=== PATIENT | female | born 1950 | race Caucasian/White ===

== ENCOUNTER → 2023-10-27 | Emergency (ER) | payer OTHER ==
[~2023-10-27] MED LIST: HYDROCODONE/APAP 10/325 TAB ONE; MORPHINE *EXTENDED RELEASE* 15 MG TAB PO ONE
--- NOTE | 2023-10-27 15:58 | RAD REPORT ---
EXAM DESCRIPTION: Josue Single View10/27/2023 3:37 pm CLINICAL HISTORY: Cough COMPARISON: none FINDINGS: The lungs appear clear of acute infiltrate. The heart is normal size IMPRESSION: No acute abnormalities displayed
[2023-10-27 16:39] LABS: Absolute Lymphocytes (CBC) 1.7 K/uL (0.7-4.9); Hematocrit 43.5 % (36.0-45.0); Lymphocytes % 33.6 % (15.3-44.8); MCV 91.7 fL (80-100); MPV 8.8 fL (7.6-11.3); Platelets 150 thou/uL (152-406); RBC Red Blood Cell Count 4.74 M/uL (3.86-4.86)
[2023-10-27 16:42] LABS: Protime INR 1.07
[2023-10-27 16:59] LABS: Bilirubin Direct 0.2 mg/dL (0-0.2); Bilirubin Indirect, Calculated 0.5 mg/dL (0.2-0.8); Bilirubin Total 0.7 mg/dL (0.2-1.0); Magnesium 2.1 mg/dL (1.6-2.4); Protein, Total 8.2 g/dL (6.4-8.2); Troponin High Sensitivity 7.6 pg/mL (<58.9)
--- NOTE | 2023-10-27 18:13 | ER ---
Nurse's Notes [facility] Name: Dolores Haines Age: 73 yrs Sex: Female : 1950 Arrival Date: 10/27/2023 Time: 13:54 Bed DX3 Private MD: Diagnosis: Chronic pain syndrome Presentation: 10/27 14:30 Chief complaint: Patient states: HERE FOR A PRESCRIPTION OF MORPHINE. FROM [place]. HAS j7 CHRONIC PAIN AND HER PRESCRIPTION WILL RUN OUT BEFORE SHE LEAVES AND NO ONE IN [place] WILL FILL HER OUT OF TOWN PRESCRIPTION SO SHE NEEDS A MORPHINE PRESCRIPTION FROM A [place] DR. Coronavirus screen: At this time, the client does not indicate any symptoms associated with coronavirus-19. Ebola Screen: No symptoms or risks identified at this time. Initial Sepsis Screen: Does the patient meet any 2 criteria? No. Patient's initial sepsis screen is negative. Does the patient have a suspected source of infection? No. Patient's initial sepsis screen is negative. Risk Assessment: Do you want to hurt yourself or someone else? Patient reports no desire to harm self or others. 14:30 Method Of Arrival: Wheelchair [facility] 14:30 Acuity: DIONISIO 5 j7 18:15 Onset of symptoms is unknown. ap3 Triage Assessment: 14:40 General: Appears in no apparent distress. comfortable, obese, Behavior is calm, jj7 cooperative, appropriate for age, anxious. Pain: Complains of pain in CHRONIC ALL OVER. Historical: - Allergies: 14:40 Lisinopril; jj7 14:40 Aspirin; jj7 14:40 NSAIDS; jj7 14:40 Nickel; jj7 - PMHx: 14:40 Arthritis; Diabetes mellitus; Hypertensive disorder; jj7 - PSHx: 14:40 LAMINECTOMY; NECK FUSION; Tonsillectomy; Cholecystectomy; GASTRIC BYPASS; jj7 - Immunization history:: Adult Immunizations up to date. - Social history:: Smoking status: Patient denies any tobacco usage or history of. Patient/guardian denies using alcohol, street drugs. - Family history:: not pertinent. Screenin:15 [facility] ED Fall Risk Assessment (Adult) History of falling in the last 3 months, ap3 including since admission No falls in past 3 months (0 pts). Abuse screen: Denies threats or abuse. Nutritional screening: No deficits noted. Tuberculosis screening: No symptoms or risk factors identified. Vital Signs: 14:30 BP 152 / 76; Pulse 86; Resp 20; Temp 98.4; Weight 114.31 kg; Height 5 ft. 3 in. ; Pain jj7 710; 14:30 Body Mass Index 44.64 (114.31 kg, 160.02 cm) jj7 14:30 Pain Scale: Adult [facility] ED Course: 14:02 Patient arrived in ED. ts1 14:40 Triage completed. jj7 14:40 Arm band placed on. jj7 14:43 Satnam Hampton MD is Attending Physician. [facility] 15:39 XRAY Chest (1 view) In Process Unspecified. EDPR 18:13 Cesario Delatorre DO is Referral Physician. [facility] 18:15 Provided Education on: discharge instructions. ap3 18:15 No provider procedures requiring assistance completed. Patient did not have IV access ap3 during this emergency room visit. 18:16 Patient has correct armband on for positive identification. Adult w/ patient. ap3 Administered Medications: 18:02 CANCELLED (Duplicate Order): ns 0.9% 500 ml IV at bolus once kimberly 18:02 CANCELLED (Duplicate Order): ns 0.9% 1000 ml IV at 125 ml/hr continuous [facility] 18:14 Drug: [place] PO 10 mg-325 mg 1 tabs PO once Route: PO; ap3 18:17 Follow up: Response: No adverse reaction; Pain is decreased ap3 Medication: 18:16 VIS not applicable for this client. ap3 Outcome: 18:13 Discharge ordered by . kimberly 18:15 Discharged to home with family, ap3 18:15 Condition: good 18:15 Discharge instructions given to patient, Instructed on discharge instructions, follow up and referral plans. Demonstrated understanding of instructions, follow-up care, 18:20 Patient left the ED. ap3 Signatures: Dispatcher [employer] EDPR Satnam Hampton MD MD cha Prokisch, Amanda, RN RN jose r3 Karely Yuen RN RN Stacia Mcclelland PAS PAS ts1 Corrections: (The following items were deleted from the chart) 14:44 14:40 Allergies: No Known Allergies; jj7 jj7 14:44 14:40 PMHx: NECK FUSION; jj7 jj7 14:44 14:40 PMHx: LAMINECTOMY; jj7 jj7
--- NOTE | 2023-10-27 18:13 | EDPHYS ---
Physician Documentation [facility] Name: Dolores Haines Age: 73 yrs Sex: Female : 1950 Arrival Date: 10/27/2023 Time: 13:54 Bed DX3 Private MD: DESHAUN Physician Satnam Hampton HPI: 10/27 18:07 This 73 yrs old Female presents to ER via Wheelchair with complaints of Pain kimberly All Over. 18:07 The patient presents with pain. The complaints affect the right arm, left arm, right kimberly leg, left leg, posterior chest, back of left leg, back of right leg and back. Context: The problem was sustained at an unknown site, resulted from an unknown cause, the patient can partially bear weight. Onset: The symptoms/episode began/occurred 2 year(s) ago. Modifying factors: The symptoms are alleviated by remaining still, the symptoms are aggravated by movement. Associated signs and symptoms: The patient has no apparent associated signs or symptoms. The patient presents with pain and decreased range of motion. Historical: - Allergies: 14:40 Lisinopril; jj7 14:40 Aspirin; jj7 14:40 NSAIDS; jj7 14:40 Nickel; jj7 - PMHx: 14:40 Arthritis; Diabetes mellitus; Hypertensive disorder; jj7 - PSHx: 14:40 LAMINECTOMY; NECK FUSION; Tonsillectomy; Cholecystectomy; GASTRIC BYPASS; jj7 - Immunization history:: Adult Immunizations up to date. - Social history:: Smoking status: Patient denies any tobacco usage or history of. Patient/guardian denies using alcohol, street drugs. - Family history:: not pertinent. ROS: 18:07 Constitutional: Negative for fever, chills, and weight loss, Eyes: Negative for injury, kimberly pain, redness, and discharge, ENT: Negative for injury, pain, and discharge, Neck: Negative for injury, pain, and swelling, Cardiovascular: Negative for chest pain, palpitations, and edema, Respiratory: Negative for shortness of breath, cough, wheezing, and pleuritic chest pain, Abdomen/GI: Negative for abdominal pain, nausea, vomiting, diarrhea, and constipation, : Negative for injury, bleeding, discharge, and swelling, MS/Extremity: Negative for injury and deformity, Skin: Negative for injury, rash, and discoloration, Neuro: Negative for headache, weakness, numbness, tingling, and seizure, Psych: Negative for depression, anxiety, suicide ideation, homicidal ideation, and hallucinations, Allergy/Immunology: Negative for hives, rash, and allergies, Endocrine: Negative for neck swelling, polydipsia, polyuria, polyphagia, and marked weight changes, Hematologic/Lymphatic: Negative for swollen nodes, abnormal bleeding, and unusual bruising, 18:07 Back: Positive for decreased range of motion, pain at rest, Exam: 18:07 Constitutional: This is a well developed, well nourished patient who is awake, alert, kimberly and in no acute distress. Head/Face: Normocephalic, atraumatic. Eyes: Pupils equal round and reactive to light, extra-ocular motions intact. Lids and lashes normal. Conjunctiva and sclera are non-icteric and not injected. Cornea within normal limits. Periorbital areas with no swelling, redness, or edema. ENT: Nares patent. No nasal discharge, no septal abnormalities noted. Tympanic membranes are normal and external auditory canals are clear. Oropharynx with no redness, swelling, or masses, exudates, or evidence of obstruction, uvula midline. Mucous membranes moist. Neck: Trachea midline, no thyromegaly or masses palpated, and no cervical lymphadenopathy. Supple, full range of motion without nuchal rigidity, or vertebral point tenderness. No Meningismus. Chest/axilla: Normal chest wall appearance and motion. Nontender with no deformity. No lesions are appreciated. Cardiovascular: Regular rate and rhythm with a normal S1 and S2. No gallops, murmurs, or rubs. Normal PMI, no JVD. No pulse deficits. Respiratory: Lungs have equal breath sounds bilaterally, clear to auscultation and percussion. No rales, rhonchi or wheezes noted. No increased work of breathing, no retractions or nasal flaring. Abdomen/GI: Soft, non-tender, with normal bowel sounds. No distension or tympany. No guarding or rebound. No evidence of tenderness throughout. Back: No spinal tenderness. No costovertebral tenderness. Full range of motion. Skin: Warm, dry with normal turgor. Normal color with no rashes, no lesions, and no evidence of cellulitis. MS/ Extremity: Pulses equal, no cyanosis. Neurovascular intact. Full, normal range of motion. Neuro: Awake and alert, GCS 15, oriented to person, place, time, and situation. Cranial nerves II-XII grossly intact. Motor strength 5/5 in all extremities. Sensory grossly intact. Cerebellar exam normal. Normal gait. Psych: Awake, alert, with orientation to person, place and time. Behavior, mood, and affect are within normal limits. 18:07 Musculoskeletal/extremity: DVT Exam: No signs of deep vein thrombosis. no pain, no swelling, no tenderness, negative Homans' sign noted on exam, no appreciated bluish discoloration, no erythema, no increased warmth, Vital Signs: 14:30 BP 152 / 76; Pulse 86; Resp 20; Temp 98.4; Weight 114.31 kg; Height 5 ft. 3 in. ; Pain jj7 7/10; 14:30 Body Mass Index 44.64 (114.31 kg, 160.02 cm) j7 14:30 Pain Scale: Adult jj7 MDM: 14:43 Patient medically screened. [facility] 18:09 Differential diagnosis: contusion. Differential Diagnosis sepsis. Data reviewed: vital [facility] signs, nurses notes, lab test result(s). Consideration of Admission/Observation Patient was admitted/placed on observation. Escalation of care including admission/observation considered. I considered the following discharge prescriptions or medication management in the emergency department Medications were administered in the Emergency Department. See MAR. Independent interpretation of the following test(s) in the Emergency Department X-Ray: My interpretation is CHEST XRAY. Test considered but Not performed: EKG: NO EKG. Historians other than the Patient: Spouse/Significant Other: . Care significantly affected by the following chronic conditions: Diabetes, Hypertension, OA. Counseling: I had a detailed discussion with the patient and/or guardian regarding the historical points, exam findings, and any diagnostic results supporting the discharge/admit diagnosis, lab results, the need for outpatient follow up, for definitive care, a family practitioner, a rn pain management. 10/27 14:45 Order name: Basic Metabolic Panel; Complete Time: 18: [facility] 10/27 14:45 Order name: CBC with Diff; Complete Time: 18: [facility] 10/27 14:45 Order name: LFT's; Complete Time: 18: [facility] 10/27 14:45 Order name: Magnesium; Complete Time: 18:01 [facility] 10/27 14:45 Order name: NT PRO-BNP; Complete Time: 18:01 [facility] 10/27 14:45 Order name: PT-INR; Complete Time: 18:01 [facility] 10/27 14:45 Order name: Troponin HS; Complete Time: 18:01 [facility] 10/27 14:45 Order name: Lipase; Complete Time: 18:01 [facility] 10/27 14:45 Order name: Blood Culture Adult (2) [facility] 10/27 14:45 Order name: Lactate w/ 2H reflex if indic.; Complete Time: 18:01 [facility] 10/27 14:45 Order name: XRAY Chest (1 view); Complete Time: 18:01 [facility] 10/27 14:45 Order name: EKG; Complete Time: 14:46 [facility] 10/27 18:07 Order name: Misc. Order: MORPHINE ER 15 MG 2 PO X1; Complete Time: 18:09 [facility] Administered Medications: 18:02 CANCELLED (Duplicate Order): ns 0.9% 500 ml IV at bolus once kimberly 18:02 CANCELLED (Duplicate Order): ns 0.9% 1000 ml IV at 125 ml/hr continuous [facility] 18:14 Drug: [place] PO 10 mg-325 mg 1 tabs PO once Route: PO; ap3 18:17 Follow up: Response: No adverse reaction; Pain is decreased ap3 Disposition Summary: 10/27/23 18:13 Discharge Ordered Notes: Location: Home kimberly Problem: new kimberly Symptoms: have improved kimberly Condition: Stable kimberly Diagnosis - Chronic pain syndrome kimberly Followup: kimberly - With: Private Physician - When: 2 - 3 days - Reason: Recheck today's complaints, Continuance of care, Re-evaluation by your physician Followup: kimberly - With: Cesario Delatorre DO - When: 2 - 3 days - Reason: Recheck today's complaints, Re-evaluation by your physician Discharge Instructions: - Discharge Summary Sheet kimberly - Chronic Back Pain kimberly - Chronic Pain, Adult kimberly - Pain Medicine Instructions kimberly - Chronic Back Pain, [id number] [facility] Forms: - Medication Reconciliation Form kimberly - Thank You Letter kimberly - Antibiotic Education kimberly - Prescription Opioid Use kimberly - Patient Portal Instructions [facility] - Leadership Thank You Letter kimberly Signatures: Dispatcher [employer] EDSatnam Dorsey MD MD cha Prokisch, Amanda, RN RN ap3 Karely Yuen RN RN jj7 Corrections: (The following items were deleted from the chart) 14:44 14:40 Allergies: No Known Allergies; jj7 jj7 14: 14:40 PMHx: NECK FUSION; jj7 jj7 14:44 14:40 PMHx: LAMINECTOMY; jj7 jj7 18:02 14:45 NS 0.9% IV 500 ml IV at bolus once ordered. kimberly kimberly 18: 14:45 NS 0.9% IV 1000 ml IV at 125 ml/hr continuous ordered. kimberly kimberly 18: 14:45 Cardiac monitoring ordered. kimberly ap3 18: 14:45 EKG - Nurse/Tech ordered. kimberly ap3 18: 14:45 IV Saline Lock ordered. kimberly ap3 18: 14:45 Labs collected and sent ordered. kimberly ap3 18: 14:45 Oxygen Per Protocol ordered. kimberly ap3 18: 14:45 O2 Sat Monitoring ordered. kimberly ap3 18:10 14:46 Urinalysis+U.LAB.BRZ ordered. EDMS EDMS
[2023-10-27 20:28] VITALS: BP 152/76; TEMP 98.4
== END ==
LOC: ER 13:54
DX: G89.4 Chronic pain syndrome (principal); I10 Essential (primary) hypertension; Z88.6 Allergy status to analgesic agent; Z88.8 Allergy status to other drugs, medicaments and biological substances; Z91.048 Other nonmedicinal substance allergy status
CPT/HCPCS: 36415; 71045; 80048; 80076; 83605; 83690; 83735; 83880; 84484; 85025; 85610; 87040; 99283